=== PATIENT | female | born 1990 | race Caucasian/White ===

== ENCOUNTER 2017-03-13 10:32 | Emergency (ER) | payer SELFPAY ==
[2017-03-13 10:40] VITALS: BP 140/96
--- NOTE | 2017-03-13 11:03 | PHYS DOC ---
Past History Past Medical History: No Pertinent History Past Surgical History: Tonsillectomy Smoking: Less than 1pk/day Alcohol Use: Occasionally Adult General Chief Complaint Chief Complaint: CHEST PAIN [facility] HPI This 26-year-old lady presents with chest pain. She states she's had the chest pain for the past one or 2 weeks. She states the couple weeks ago she had an EKG she had done because of the chest pain then went to [facility] where she was evaluated thoroughly. No diagnosis was given. She states that in the past 24 she's had tightness in the center of her chest is been severe. She has had hemoptysis 5 out of 7 days only small amounts. Patient is a smoker, questionable history of hypertension, she does not know about her cholesterol but her father did have a heart attack. Review of Systems Review of Systems Constitutional: Denies fever or chills this patient is a very healthy looking 26 -year-old lady who does not appear to be in any distress Eyes: Denies change in visual acuity, redness, or eye pain [] HENT: Denies nasal congestion or sore throat [] Respiratory: Denies cough or shortness of breath [] Cardiovascular: No additional information not addressed in HPI [] GI: Denies abdominal pain, nausea, vomiting, bloody stools or diarrhea [] : Denies dysuria or hematuria [] Musculoskeletal: Denies back pain or joint pain [] Integument: Denies rash or skin lesions [] Neurologic: Denies headache, focal weakness or sensory changes [] Endocrine: Denies polyuria or polydipsia [] Allergies Allergies Allergies Coded Allergies Type Severity Reaction Last Updated Verified Penicillins Allergy rash, swelling, diarrhea 09/21/13 Yes shellfish derived Allergy diarrhea 09/21/13 Yes Physical Exam Physical Exam Constitutional: Well developed, well nourished, no acute distress, non-toxic appearance. [] HENT: Normocephalic, atraumatic, bilateral external ears normal, oropharynx moist, no oral exudates, nose normal. [] Eyes: PERRLA, EOMI, conjunctiva normal, no discharge. [] Neck: Normal range of motion, no tenderness, supple, no stridor. [] Cardiovascular:Heart rate regular rhythm, no murmur [] Lungs & Thorax: Bilateral breath sounds clear to auscultation she does have some central chest tenderness is somewhat recreates the pain Abdomen: Bowel sounds normal, soft, no tenderness, no masses, no pulsatile masses. [] Skin: Warm, dry, no erythema, no rash. [] Back: No tenderness, no CVA tenderness. [] Extremities: No tenderness, no cyanosis, no clubbing, ROM intact, no edema. [] Neurologic: Alert and oriented X 3, normal motor function, normal sensory function, no focal deficits noted. [] Psychologic: Affect normal, judgement normal, mood normal. [] EKG EKG EKG is essentially unremarkable with no significant ST or T-wave changes , chest x-ray is normal CBC and chemistries are all unremarkable troponin is normal and d-dimer is normal [] Radiology/Procedures Radiology/Procedures [] Impressions: Chest wall pain Course & Med Decision Making Course & Med Decision Making All of her lab work and x-rays EKG were all reviewed and all are essentially unremarkable She was instructed to follow-up with her doctor [] Dragon Disclaimer Dragon Disclaimer This chart was dictated in whole or in part using Voice Recognition software in a busy, high-work load, and often noisy Emergency Department environment. It may contain unintended and wholly unrecognized errors or omissions. Departure Departure: Referrals: PCP,NO (PCP) TATUM DAWSON MD Mar 13, 2017 11:03
[2017-03-13 11:16] LABS: BASO # 0.1 x10^3/uL (0.0-0.2); BASO % 1 % (0-3); EOS # 0.3 x10^3/uL (0.0-0.7); EOS % 5 % (0-3); HEMATOCRIT 40.7 % (36.0-47.0); HEMOGLOBIN 13.9 g/dL (12.0-15.5); LYMPH # 1.8 x10^3/uL (1.0-4.8); LYMPH % 27 % (24-48); MEAN CORPUSCULAR HEMOGLOBIN 31 pg (25-35); MEAN CORPUSCULAR HGB CONC 34 g/dL (31-37); MEAN CORPUSCULAR VOLUME 92 fL (79-100); MONO # 0.4 x10^3/uL (0.0-1.1); MONO % 6 % (0-9); NEUT % 61 % (31-73); PLATELET COUNT 221 x10^3/uL (140-400); RED BLOOD COUNT 4.44 x10^6/uL (3.50-5.40); RED CELL DISTRIBUTION WIDTH 13.3 % (11.5-14.5); WHITE BLOOD COUNT 6.6 x10^3/uL (4.0-11.0)
[2017-03-13 11:27] LABS: ALBUMIN/GLOBULIN RATIO 1.4 (1.0-1.7); CALCIUM 8.6 mg/dL (8.5-10.1); CREATININE 0.8 mg/dL (0.6-1.0); DIRECT BILIRUBIN 0.2 mg/dL (0.0-0.2); GFR 86.7; POTASSIUM 3.9 mmol/L (3.5-5.1); TOTAL BILIRUBIN 0.7 mg/dL (0.2-1.0); TOTAL PROTEIN 6.9 g/dL (6.4-8.2)
--- NOTE | 2017-03-13 11:32 | RAD ---
EXAM: CHEST 1 VIEW History: Chest pain COMPARISON: 05/30/2013 TECHNIQUE: Single portable radiograph of the chest FINDINGS: The cardiac silhouette is unremarkable. The lungs are clear bilaterally. The costophrenic sulci are clear and well demarcated. The osseous structures and soft tissues are unremarkable. IMPRESSION: No radiographic evidence of an acute cardiopulmonary process.
--- NOTE | 2017-03-13 14:06 | EKG ---
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 RI6.01 Unconfirmed report Compared to ECG 06/30/2013 02:29:41 No significant changes Electronically Signed On 03-15-2017 11:13:24 CDT by Lalo Issa
== END 2017-03-13 11:45 | disposition home or self-care (01) ==
LOC: ER 10:32
DX: R07.89 Other chest pain (principal); R04.2 Hemoptysis; F17.200 Nicotine dependence, unspecified, uncomplicated; Z88.0 Allergy status to penicillin; Z91.013 Allergy to seafood
CPT/HCPCS: 36415; 71010; 80053; 82248; 84484; 85027; 85379; 85610; 85730; 93005; 99285-25

== ENCOUNTER 2019-05-12 17:20 | Emergency (ER) | payer OTHER ==
[~2019-05-12] VITALS: Ht 165.1 cm; Wt 52.2 kg
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
[2019-05-12] MEDS ORDERED: IV RINGERS SOLUTION,LACTATED 1,000 ML IV SCH (17:43)
[2019-05-12] MEDS ORDERED: VALPROATE SODIUM 500 MG in IV NORMAL SALINE 50ML 50 ML IV STA (17:53)
[2019-05-12] MEDS ORDERED: diphenhydrAMINE 50 MG/ML VIAL IVP ONE (18:00)
[2019-05-12] MEDS ORDERED: PROCHLORPERAZINE 10 MG/2 ML VIAL. IV ONE (18:00)
[2019-05-12] MEDS ORDERED: IV NORMAL SALINE 50ML 50 ML ONE (18:03)
[2019-05-12] MEDS ORDERED: VALPROATE SODIUM 500 MG/5 ML VIAL IV ONE (18:04)
--- NOTE | 2019-05-12 18:05 | RAD ---
Exam: CT head INDICATION: Headache TECHNIQUE: Sequential axial images through the head were obtained without the administration of IV contrast. Comparisons: None FINDINGS: No focal parenchymal lesion or hemorrhage is identified. There is no midline shift or sulcal effacement. No acute vascular territory infarction is identified. Fernandez-white distinction is preserved. The ventricular system is within normal limits without compression hydrocephalus. The basal cisterns are well maintained. The visualized portions of the paranasal sinuses and mastoid air cells are well-pneumatized. No acute fractures. IMPRESSION: No acute intracranial abnormality. Exposure: One or more of the following in the visualized dose reduction techniques were utilized for this examination: 1. Automated exposure control 2. Adjustment of the MA and/or KV according to patient size Use of iterative of reconstructive technique Electronically signed by: Thao Alexander MD (05/12/2019 6:02 PM) [facility]
--- NOTE | 2019-05-12 18:10 | EKG ---
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 Electronically Signed On 05-17-2019 9:49:55 CDT by Lalo Issa
[2019-05-12 18:15] LABS: BASO # 0.1 x10^3/uL (0.0-0.2); BASO % 1 % (0-3); EOS # 0.4 x10^3/uL (0.0-0.7); EOS % 6 % (0-3); HEMATOCRIT 39.2 % (36.0-47.0); HEMOGLOBIN 13.2 g/dL (12.0-15.5); LYMPH % 30 % (24-48); MEAN CORPUSCULAR HEMOGLOBIN 32 pg (25-35); MEAN CORPUSCULAR HGB CONC 34 g/dL (31-37); MEAN CORPUSCULAR VOLUME 94 fL (79-100); MONO # 0.4 x10^3/uL (0.0-1.1); MONO % 6 % (0-9); NEUT # 3.9 x10^3uL (1.8-7.7); NEUT % 58 % (31-73); PLATELET COUNT 185 x10^3/uL (140-400); RED BLOOD COUNT 4.19 x10^6/uL (3.50-5.40); RED CELL DISTRIBUTION WIDTH 13.2 % (11.5-14.5); WHITE BLOOD COUNT 6.7 x10^3/uL (4.0-11.0)
[2019-05-12 18:23] LABS: ALBUMIN 3.8 g/dL (3.4-5.0); CALCIUM 8.8 mg/dL (8.5-10.1); CREATININE 0.8 mg/dL (0.6-1.0); DIRECT BILIRUBIN 0.2 mg/dL (0.0-0.2); GFR 85.4; MAGNESIUM 1.8 mg/dL (1.8-2.4); TOTAL BILIRUBIN 0.6 mg/dL (0.2-1.0); TOTAL PROTEIN 6.3 g/dL (6.4-8.2)
[2019-05-12 18:33] LABS: BARBITURATES NEG (NEG); BENZODIAZEPINES NEG (NEG); CANNABINOIDS POS (NEG); COCAINE NEG (NEG); METHADONE NEG (NEG); OPIATES NEG (NEG); PHENCYCLIDINE NEG (NEG)
[2019-05-12 18:35] LABS: BILIRUBIN,URINE NEG (NEG); CLARITY,URINE CLEAR; COLOR,URINE YELLOW; GLUCOSE,URINE NEG (NEG)
[2019-05-12 18:36] LABS: BACTERIA,URINE 0 /HPF (0-FEW); NITRITE,URINE NEG (NEG); RBC,URINE 0 /HPF (0-2); SQUAMOUS EPITHELIAL CELL,UR OCC /LPF; UROBILINOGEN,URINE 0.2 mg/dL (0.2 mg/dL); WBC,URINE OCC /HPF (0-4)
[2019-05-12 18:39] LABS: AMPHETAMINE/METHAMPHETAMINE NEG (NEG)
[2019-05-12] MEDS ORDERED: ONDA8TAB9 PO (18:51)
[2019-05-12] MEDS ORDERED: SUMA100T3 PO (18:51)
[2019-05-12] MEDS ORDERED: HYDR-1179 PO (18:51)
[2019-05-12] MEDS ORDERED: SUMAtriptan SUCC 6 MG/0.5 ML VIAL SQ ONE (19:00)
[2019-05-12] MEDS ORDERED: KETOROLAC 30 MG/ML VIAL. IV ONE (19:00)
[2019-05-12 19:06] VITALS: BP 123/65
[2019-05-12 19:45] LABS: SEDIMENTATION RATE 5 (0-25)
== END 2019-05-12 19:49 | disposition home or self-care (01) ==
LOC: ER 17:20
DX: G43.909 Migraine, unspecified, not intractable, without status migrainosus (principal); J45.909 Unspecified asthma, uncomplicated; Z87.820 Personal history of traumatic brain injury; F17.200 Nicotine dependence, unspecified, uncomplicated; Z88.0 Allergy status to penicillin; Z91.013 Allergy to seafood
CPT/HCPCS: 36415; 70450; 80048; 80076; 80307; 81001; 83735; 84702; 85025; 85610; 85651; 85730; 93005; 96365; 96372; 96375; 99285; J0780; J1200; J1885; J3030; J3490; J7120

== ENCOUNTER 2019-06-09 11:32 | Emergency (ER) | payer OTHER ==
[~2019-06-09 11:32] MED LIST: HYDR-1179 PO; ONDA8TAB9 PO; SUMA100T3 PO
[2019-06-09 11:45] VITALS: BP 118/77
[2019-06-09] MEDS ORDERED: MELO7.5T29 PO (11:59)
[2019-06-09] MEDS ORDERED: HYDR-3165 PO (11:59)
[2019-06-09] MEDS ORDERED: AMOX500T PO (11:59)
[2019-06-09] MEDS ORDERED: FLUC150T PO (11:59)
--- NOTE | 2019-06-09 12:00 | PHYS DOC ---
Past History Past Medical History: No Pertinent History Past Surgical History: Tonsillectomy Smoking: Less than 1pk/day Alcohol Use: None Drug Use: None Adult General Chief Complaint Chief Complaint: DENTAL PROBLEM HPI HPI Patient is a 28-year-old female presents with right upper dental pain that has been present for the past day, getting worse over time. Sensitivity to hot and cold is present. No fever. No drainage. No foul taste in the mouth. No fever. No relief with xhyg-djn-ghukakj medication. No nausea or vomiting. No difficulty swallowing. Discomfort is moderate to severe in intensity.[] Review of Systems Review of Systems Constitutional: Denies fever or chills [] Eyes: Denies change in visual acuity, redness, or eye pain [] HENT: Denies nasal congestion or sore throat , see history of present illness[] Respiratory: Denies cough or shortness of breath [] Cardiovascular: No chest pain or palpitations[] GI: Denies abdominal pain, nausea, vomiting, bloody stools or diarrhea [] : Denies dysuria or hematuria [] Musculoskeletal: Denies back pain or joint pain [] Integument: Denies rash or skin lesions [] Neurologic: Denies headache, focal weakness or sensory changes [] Endocrine: Denies polyuria or polydipsia [] All other systems were reviewed and found to be within normal limits, except as documented in this note. Allergies Allergies Allergies Coded Allergies Type Severity Reaction Last Updated Verified Penicillins Allergy rash, swelling, diarrhea 09/21/13 Yes shellfish derived Allergy diarrhea 09/21/13 Yes Physical Exam Physical Exam Constitutional: Well developed, well nourished, no acute distress, non-toxic appearance. [] HENT: Normocephalic, atraumatic, bilateral external ears normal, oropharynx moist, no oral exudates, nose normal. Tenderness to percussion of tooth #2. Patient has braces still in place on teeth #2 and 3. There is no drainable abscess appreciated. [] Eyes: PERRLA, EOMI, conjunctiva normal, no discharge. [] Neck: Normal range of motion, no tenderness, supple, no stridor. [] Cardiovascular:Heart rate regular rhythm, no murmur [] Lungs & Thorax: Bilateral breath sounds clear to auscultation [] Abdomen: Not examined[] Skin: Warm, dry, no erythema, no rash. [] Back: No tenderness, no CVA tenderness. [] Extremities: No tenderness, no cyanosis, no clubbing, ROM intact, no edema. [] Neurologic: Alert and oriented X 3, normal motor function, normal sensory function, no focal deficits noted. [] Psychologic: Affect normal, judgement normal, mood normal. [] Current Patient Data Vital Signs Vital Signs Date Time Temp Pulse Resp B/P (MAP) Pulse Ox O2 Delivery O2 Flow Rate FiO2 06/09/19 11:45 98.7 86 18 98 Room Air EKG EKG [] Radiology/Procedures Radiology/Procedures [] Course & Med Decision Making Course & Med Decision Making Pertinent Labs and Imaging studies reviewed. (See chart for details) Medical decision making: Patient with a periapical abscess of tooth #2. Will treat with amoxicillin. Patient does not actually have an amoxicillin allergy but gets yeast infections with penicillin antibiotics. Will also prescribed Diflucan to treat this if it develops at the end of the antibiotics. Will also address pain with appropriate medication. ED course: Patient arrived, was placed in bed, and tolerated exam well. Findings were discussed with the patient who voiced understanding. All questions were answered. Patient was discharged in improved condition.[] Dragon Disclaimer Dragon Disclaimer This electronic medical record was generated, in whole or in part, using a voice recognition dictation system. Departure Departure: Impression: Primary Impression: Dental abscess Disposition: 01 HOME, SELF-CARE Condition: IMPROVED Referrals: TATUM SIERRA MD (PCP) Follow-up in 2 days Patient Instructions: Dental Abscess Additional Instructions: Follow-up with your regular doctor or dentist in 2 days. A list of local clinics will be provided for you. Return to the ER if worsening discomfort, fever of more than 101�, or any other concerns. Scripts Fluconazole (DIFLUCAN) 150 Mg Tablet 1 TAB PO ONCE for AT END OF ANTIBIOTICS, #1 TAB 1 Refill Prov: YENI GUPTA DO 06/09/19 Hydrocodone Bit/Acetaminophen (NORCO 5-325 TABLET) 1 Each Tablet 1 TAB PO Q4-6HRS for severe pain, #20 TAB Prov: YENI GUPTA DO 06/09/19 Meloxicam (MELOXICAM) 7.5 Mg Tablet 7.5 MG PO DAILY for PAIN, #20 TAB Prov: EIYENI LO DO 06/09/19 Amoxicillin (AMOXICILLIN) 500 Mg Tablet 500 MG PO TID for DENTAL ABSCESS for 10 Days, #30 TAB Prov: YENI GUPTA DO 06/09/19 YENI GUPTA DO Jun 09, 2019 12:00
== END 2019-06-09 12:11 | disposition home or self-care (01) ==
LOC: ER 11:32
DX: K04.7 Periapical abscess without sinus (principal); F17.200 Nicotine dependence, unspecified, uncomplicated; Z88.0 Allergy status to penicillin; Z91.013 Allergy to seafood
CPT/HCPCS: 99283

== ENCOUNTER 2020-06-04 14:38 | Emergency (ER) | payer BC, OTHER ==
[~2020-06-04] VITALS: Ht 165.1 cm; Wt 54.0 kg
[~2020-06-04 14:38] MED LIST changes: +AMOX500T PO; +FLUC150T PO; +HYDR-3165 PO; +MELO7.5T29 PO
[2020-06-04 14:53] VITALS: BP 122/69
--- NOTE | 2020-06-04 15:40 | RAD ---
Examination: US PELVIS History: left side pelvic pain since yesterday. Comparison/Correlation: None Findings: Transabdominal pelvic ultrasound exam was performed. Uterus measures 7.6 x 4.4 cm x 5 cm. Endometrial thickness is 0.7 cm. Myometrium is unremarkable. Right ovary measures 3 cm x 1.8 cm x 2.1 cm. Left ovary measures 2.1 cm x 2.4 cm x 1.8 cm. No significant adnexal cysts or follicles. Normal-appearing flow bilaterally. No adnexal mass. No pelvic free fluid. Impression: No suspicious findings. Unremarkable exam. Electronically signed by: Elmer Jerry MD (06/04/2020 3:37 PM) [facility]
[2020-06-04 16:30] LABS: BILIRUBIN,URINE NEG (NEG); CLARITY,URINE CLEAR; COLOR,URINE STRAW; GLUCOSE,URINE NEG (NEG); NITRITE,URINE NEG (NEG); UROBILINOGEN,URINE 0.2 mg/dL (0.2 mg/dL)
--- NOTE | 2020-06-04 16:32 | RAD ---
Examination: CT ABDOMEN PELVIS WO CONTRAST History: left side flank pain, left side lower abdominal pain / Comparison/Correlation: None Findings: Axial images of the abdomen and pelvis were obtained without contrast. Sagittal and coronal reformatted images were provided. Minimal lingular atelectasis is present. Liver, spleen, pancreas, adrenal glands are normal. Gallbladder fossa is unremarkable. There is no hydronephrosis or hydroureter. Renal contours are normal. No perinephric stranding identified. Appendix is normal. Moderate quantity of stool is present in the colon. No extraluminal gas. No bowel obstruction. Uterus is unremarkable. Left adnexal follicle measuring 1.5 cm diameter is present. Small amount of pelvic free fluid is present. Bony structures are unremarkable. No definite or significant degenerative change. Impression: Small left adnexal follicle and pelvic fluid are physiologic in appearance. No acute inflammatory process. No obstruction. PQRS Compliance Statement: One or more of the following individualized dose reduction techniques were utilized for this examination: 1. Automated exposure control 2. Adjustment of the mA and/or kV according to patient size 3. Use of iterative reconstruction technique Electronically signed by: Elmer Jerry MD (06/04/2020 4:29 PM) [facility]
[2020-06-04 16:38] LABS: BACTERIA,URINE 0 /HPF (0-FEW); WBC,URINE 0 /HPF (0-4)
--- NOTE | 2020-06-04 17:04 | PHYS DOC ---
Past History Past Medical History: No Pertinent History Past Surgical History: Tonsillectomy Smoking: Less than 1pk/day Alcohol Use: None Drug Use: None General Adult EDM: Chief Complaint: ABDOMINAL PAIN HPI: HPI: Patient is a 29-year-old female who presented to ER today for evaluation of left lower abdominal pain started yesterday. Symptoms started again today. Patient denies any fever, no nausea vomiting. Patient denies any vaginal bleeding or discharge. Review of Systems: Review of Systems: Constitutional: Denies fever or chills Eyes: Denies change in visual acuity HENT: Denies nasal congestion or sore throat Respiratory: Denies cough or shortness of breath Cardiovascular: Denies chest pain or edema GI: Positive for Left side abdominal pain,no nausea, vomiting, bloody stools or diarrhea : Denies dysuria Musculoskeletal: Denies back pain or joint pain Integument: Denies rash Neurologic: Denies headache, focal weakness or sensory changes Endocrine: Denies polyuria or polydipsia Lymphatic: Denies swollen glands Psychiatric: Denies depression or anxiety Heart Score: Risk Factors: Risk Factors: DM, Current or recent (<one month) smoker, HTN, HLP, family history of CAD, obesity. Risk Scores: Score 0 - 3: 2.5% MACE over next 6 weeks - Discharge Home Score 4 - 6: 20.3% MACE over next 6 weeks - Admit for Clinical Observation Score 7 - 10: 72.7% MACE over next 6 weeks - Early Invasive Strategies Allergies: Allergies: Allergies Coded Allergies Type Severity Reaction Last Updated Verified Penicillins Allergy rash, swelling, diarrhea 09/21/13 Yes shellfish derived Allergy diarrhea 09/21/13 Yes Physical Exam: PE: Constitutional: Well developed, well nourished, no acute distress, non-toxic appearance. [] HENT: Normocephalic, atraumatic, bilateral external ears normal, oropharynx mo ist, no oral exudates, nose normal. [] Eyes: PERRLA, EOMI, conjunctiva normal, no discharge. [] Neck: Normal range of motion, no tenderness, supple, no stridor. [] Cardiovascular:Heart rate regular rhythm, no murmur [] Lungs & Thorax: Bilateral breath sounds clear to auscultation [] Abdomen: Bowel sounds normal, soft, There is left side lower abdominal tenderness to palpation, no masses, no pulsatile masses. [] Skin: Warm, dry, no erythema, no rash. [] Back: No tenderness, no CVA tenderness. [] Extremities: No tenderness, no cyanosis, no clubbing, ROM intact, no edema. [] Neurologic: Alert and oriented X 3, normal motor function, normal sensory function, no focal deficits noted. [] Psychologic: Affect normal, judgement normal, mood normal. [] Current Patient Data: Labs: Laboratory Tests Test 06/04/20 15:01 06/04/20 15:59 Urine Collection Type Unknown Urine Color Straw Urine Clarity Clear Urine pH 7.0 Urine Specific Levels 1.015 Urine Protein Neg (NEG-TRACE) Urine Glucose (UA) Neg mg/dL (NEG) Urine Ketones (Stick) Neg mg/dL (NEG) Urine Blood Neg (NEG) Urine Nitrite Neg (NEG) Urine Bilirubin Neg (NEG) Urine Urobilinogen Dipstick 0.2 mg/dL (0.2 mg/dL) Urine Leukocyte Esterase Neg (NEG) Urine RBC 1-2 /HPF (0-2) Urine WBC 0 /HPF (0-4) Urine Bacteria 0 /HPF (0-FEW) POC Urine HCG, Qualitative hcg negative (Negative) Vital Signs: Vital Signs Date Time Temp Pulse Resp B/P (MAP) Pulse Ox O2 Delivery O2 Flow Rate FiO2 06/04/20 14:53 97.8 91 16 122/69 (86) 99 Room Air EKG: EKG: [] Radiology/Procedures: Radiology/Procedures: [][address] [address] IMAGING REPORT Signed PATIENT: VENTURA GEORGE ACCOUNT: [id number] : 1990 LOCATION: ER AGE: 29 SEX: F EXAM STATUS: DEP ER ORD. PHYSICIAN: MOHESN MASTERSON DO REASON: left side flank pain, left side lower abdominal pain PROCEDURE: CT ABDOMEN PELVIS WO CONTRAST Examination: CT ABDOMEN PELVIS WO CONTRAST History: left side flank pain, left side lower abdominal pain / Comparison/Correlation: None Findings: Axial images of the abdomen and pelvis were obtained without contrast. Sagittal and coronal reformatted images were provided. Minimal lingular atelectasis is present. Liver, spleen, pancreas, adrenal glands are normal. Gallbladder fossa is unremarkable. There is no hydronephrosis or hydroureter. Renal contours are normal. No perinephric stranding identified. Appendix is normal. Moderate quantity of stool is present in the colon. No extraluminal gas. No bowel obstruction. Uterus is unremarkable. Left adnexal follicle measuring 1.5 cm diameter is present. Small amount of pelvic free fluid is present. Bony structures are unremarkable. No definite or significant degenerative change. Impression: Small left adnexal follicle and pelvic fluid are physiologic in appearance. No acute inflammatory process. No obstruction. PQRS Compliance Statement: One or more of the following individualized dose reduction techniques were utilized for this examination: 1. Automated exposure control 2. Adjustment of the mA and/or kV according to patient size 3. Use of iterative reconstruction technique Electronically signed by: Elmer Herrera MD (06/04/2020 4:29 PM) [facility] DICTATED AND SIGNED BY: ELMER HERRERA MD DATE: 06/04/20 6819 CC: PCP,NO; MOHSEN MASTERSON DO ~ [place] [address] IMAGING REPORT Signed PATIENT: VENTURA GEORGE ACCOUNT: [id number] : 1990 LOCATION: ER AGE: 29 SEX: F EXAM STATUS: DEP ER ORD. PHYSICIAN: MOHSEN MASTERSON DO REASON: left side flank pain, left side lower abdominal pain PROCEDURE: CT ABDOMEN PELVIS WO CONTRAST Examination: CT ABDOMEN PELVIS WO CONTRAST History: left side flank pain, left side lower abdominal pain / Comparison/Correlation: None Findings: Axial images of the abdomen and pelvis were obtained without contrast. Sagittal and coronal reformatted images were provided. Minimal lingular atelectasis is present. Liver, spleen, pancreas, adrenal glands are normal. Gallbladder fossa is unremarkable. There is no hydronephrosis or hydroureter. Renal contours are normal. No perinephric stranding identified. Appendix is normal. Moderate quantity of stool is present in the colon. No extraluminal gas. No bowel obstruction. Uterus is unremarkable. Left adnexal follicle measuring 1.5 cm diameter is present. Small amount of pelvic free fluid is present. Bony structures are unremarkable. No definite or significant degenerative change. Impression: Small left adnexal follicle and pelvic fluid are physiologic in appearance. No acute inflammatory process. No obstruction. [facility] Compliance Statement: One or more of the following individualized dose reduction techniques were utilized for this examination: 1. Automated exposure control 2. Adjustment of the mA and/or kV according to patient size 3. Use of iterative reconstruction technique Electronically signed by: Elmer Herrera MD (06/04/2020 4:29 PM) [facility] DICTATED AND SIGNED BY: ELMER HERRERA MD DATE: 06/04/20 1629 CC: [facility]; MOHSEN MASTERSON DO ~ Course & Med Decision Making: Course & Med Decision Making Pertinent Labs and Imaging studies reviewed. (See chart for details) [] Dragon Disclaimer: Dragon Disclaimer: This electronic medical record was generated, in whole or in part, using a voice recognition dictation system. Departure Departure: Impression: Primary Impression: Abdominal pain Disposition: HOME/RESIDENCE PRIOR TO ADM Condition: STABLE Referrals: [facility] (PCP) follow up with your doctor as needed Patient Instructions: Abdominal Pain Additional Instructions: Thank you for visiting our Emergency Department. We appreciate you trusting us with your care. If any additional problems come up don't hesitate to return to visit us. Please follow up with your primary care provider so they can plan additional care if needed and know about the problem that you had. If symptoms worsen come back to the Emergency Department. Any concerning symptoms that start such as chest pain, shortness of air, weakness or numbness on one side of the body, running high fevers or any other concerning symptoms return to the ER. Justification of Admission: Justification of Admission: Justification of Admission Dx: N/A MOHSEN MASTERSON DO Jun 04, 2020 17:04
== END 2020-06-04 16:10 | disposition home or self-care (01) ==
LOC: ER 14:38
DX: R10.32 Left lower quadrant pain (principal); F17.200 Nicotine dependence, unspecified, uncomplicated; Z88.0 Allergy status to penicillin; Z91.013 Allergy to seafood
CPT/HCPCS: 74176; 76856; 81001; 81025; 99285

== ENCOUNTER 2020-07-28 00:05 | Emergency (ER) | payer OTHER ==
[~2020-07-28] VITALS: Ht 165.1 cm; Wt 54.0 kg
[2020-07-28 00:05] VITALS: BP 104/45
--- NOTE | 2020-07-28 00:15 | PHYS DOC ---
Past History Past Medical History: No Pertinent History, Anxiety, Asthma, Bronchitis, Other Past Medical History Seasonal allergies Past Surgical History: Tonsillectomy Smoking: Less than 1pk/day Alcohol Use: None Drug Use: None, Marijuana General Adult HPI: HPI: ''.. I ve been on my inhaler... and on breathing treatment s all night.. it the seasons.. but I am coughing.. wheezing bad... I figured I better come in... I was so bad .. I could not go to work..." Patient is a 29 year old female who presents with above hx and complaints of exacerbation of her asthma. Patient states she has exacerbation with season changes of the year. Patient however does continue to smoke tobacco. Patient does not know her best peak flow. Patient has been using [id number]-thr-[id number] allergy meds. Patient has been overusing her inhalers and breathing treatments. Patient works at [employer] but because of the wheezing and coughing she had to take off work. Patient has never been intubated for asthma. Patient has not required admission overnight in the hospital for asthma exacerbation. Alexa ent does not do flu shots. Patient states she will not do the Covid vaccination if becomes available. Patient states she she does not or will do Pneumovax.. No specific ill contacts. No recent travel outside the [place] area. No history of fevers however has had some productive sputum.. No history of immuno suppression. No history of coagulopathy, pulmonary embolisms, DVTs. With her or family members. Review of Systems: Review of Systems: Constitutional: Denies fever or chills Eyes: Denies change in visual acuity HENT: Denies nasal congestion or sore throat Respiratory: Complains of cough, wheezing, Cardiovascular: Denies chest pain or edema GI: Denies abdominal pain, nausea, vomiting, bloody stools or diarrhea : Denies dysuria Musculoskeletal: Denies back pain or joint pain Integument: Denies rash Neurologic: Denies headache, focal weakness or sensory changes Endocrine: Denies polyuria or polydipsia Lymphatic: Denies swollen glands Psychiatric: Denies depression or anxiety Family History: Family History: Noncontributory to presentation Current Medications: Current Meds: See nursing for home meds Allergies: Allergies: Allergies Coded Allergies Type Severity Reaction Last Updated Verified Penicillins Allergy rash, swelling, diarrhea 09/21/13 Yes shellfish derived Allergy diarrhea 09/21/13 Yes Physical Exam: PE: Constitutional: Moderate distress, non-toxic appearance. [] HENT: Normocephalic, atraumatic, bilateral external ears normal, oropharynx moist, postnasal drainage, no oral exudates, nose swollen turbinates with clear rhinorrhea Eyes: PERRLA, EOMI, conjunctiva mild injection, , no discharge. [] Neck: Normal range of motion, no tenderness, supple, no stridor. No adenopathy. Trachea is midline. Cardiovascular: Tachycardia heart rate regular rhythm, no murmur [] Lungs & Thorax: Bilateral breath sounds equal at apex with scattered wheezing throughout on auscultation [] deep breaths causes her to cough. Patient has decreased breath sounds on right posterior base. Abdomen: Bowel sounds normal, soft, no tenderness, no masses, no pulsatile masses. [] Skin: Warm, dry, no erythema, no rash.. Multiple tattoos. Back: No tenderness, no CVA tenderness. [] Extremities: No tenderness, no cyanosis, no clubbing, ROM intact, no edema. No cording appreciated. Neurologic: Alert and oriented X 3, normal motor function, normal sensory function, no focal deficits noted. [] Psychologic: Affect anxious, judgement normal, mood normal. [] EKG: EKG: [] Radiology/Procedures: Radiology/Procedures: [][place] [address] IMAGING REPORT Signed PATIENT: VENTURA GEORGE ACCOUNT: [id number] : 1990 LOCATION: ER AGE: 29 SEX: F EXAM STATUS: REG ER ORD. PHYSICIAN: RUDI BACON MD REASON: cough, decrese bs Rt PROCEDURE: CHEST PA & LATERAL EXAM: CHEST 2 VIEWS. HISTORY: Cough, decreased right breath sounds. COMPARISON: 03/13/2017. FINDINGS: Frontal and lateral views of the chest are obtained. There are no confluent infiltrates. There is no pneumothorax or pleural effusion. The heart is not enlarged. IMPRESSION: 1. No confluent infiltrates. Electronically signed by: Rob Payton MD (07/28/2020 1:06 AM) [facility] DICTATED AND SIGNED BY: MAGEN PAYTON MD DATE: 07/28/20105 CC: RUDI BACON MD; PCP,CICI ~ Heart Score: Risk Factors: Risk Factors: DM, Current or recent (<one month) smoker, HTN, HLP, family history of CAD, obesity. Risk Scores: Score 0 - 3: 2.5% MACE over next 6 weeks - Discharge Home Score 4 - 6: 20.3% MACE over next 6 weeks - Admit for Clinical Observation Score 7 - 10: 72.7% MACE over next 6 weeks - Early Invasive Strategies Course & Med Decision Making: Course & Med Decision Making Pertinent Labs and Imaging studies reviewed. (See chart for details) Patient consider use of Flonase for seasonal allergies. Continue her breathing treatments with duo nebs and or albuterol every 4 hours as needed with spacer. Patient is a document peak flows in the morning pre and post treatments. Show these findings to primary care. Patient must stop smoking. Strongly encourage patient to take it flu shot and Pneumovax.. Patient take prednisone 50 mg daily for 5 days. Patient take Zithromax 250 mg a day for 5 days. Follow-up primary care. Return if any concerns. At time of discharge patient reported marked improvement. Patient was no longer tachycardic or borderline hypoxic. Impression: 1. Asthma Exacerbation 2. Bronchitis 3. Seasonal Allergies 4. Upper airway infections- Viral vs Bacterial [] Rowdy Disclaimer: Rowdy Disclaimer: This electronic medical record was generated, in whole or in part, using a voice recognition dictation system. Departure Departure: Referrals: PCP,CICI (PCP) Scripts Ipratropium/Albuterol Sulfate (DUONEB 0.5-3(2.5) MG/3 ML) 3 Ml Ampul.neb 3 ML NEB QID for asthma, #120 EACH Prov: RUDI BACON MD 07/28/20 Albuterol Sulfate (VENTOLIN HFA INHALER) 18 Gm Hfa.aer.ad 1 PUFF IH PRN Q4HRS PRN for FOR ASTHMA, #30 INHALER 0 Refills Prov: RUDI BACON MD 07/28/20 Azithromycin (ZITHROMAX) 250 Mg Tablet 250 MG PO DAILY for ANTI-BIOTIC for 5 Days, #5 TAB 0 Refills Prov: RUDI BACON MD 07/28/20 Prednisone (PREDNISONE) 50 Mg Tablet 50 MG PO DAILY for asthmna for 5 Days, #5 TAB Prov: RUDI BACON MD 07/28/20 Dragon Disclaimer This chart was dictated in whole or in part using Voice Recognition software in a busy, high-work load, and often noisy Emergency Department environment. It may contain unintended and wholly unrecognized errors or omissions. RUDI BACON MD Jul 28, 2020 00:15
[2020-07-28] MEDS ORDERED: IPRATRPIUM/ALBUTEROL 0.5/2.5MG 3 ML NEBU. NEB ONE (00:30)
[2020-07-28] MEDS ORDERED: AZITHROMYCIN 250 MG TABLET. PO ONE (00:30)
[2020-07-28] MEDS ORDERED: predniSONE 10 MG TABLET PO ONE (00:30)
--- NOTE | 2020-07-28 01:09 | RAD ---
EXAM: CHEST 2 VIEWS. HISTORY: Cough, decreased right breath sounds. COMPARISON: 03/13/2017. FINDINGS: Frontal and lateral views of the chest are obtained. There are no confluent infiltrates. There is no pneumothorax or pleural effusion. The heart is not enlarged. IMPRESSION: 1. No confluent infiltrates. Electronically signed by: Rob Payton MD (07/28/2020 1:06 AM) [facility]
[2020-07-28] MEDS ORDERED: AZIT250T PO (01:26)
[2020-07-28] MEDS ORDERED: ALBU2.5V8 IH (01:26)
[2020-07-28] MEDS ORDERED: IPRA3AMP29 NEB (01:26)
[2020-07-28] MEDS ORDERED: PRED50TA PO (01:26)
[2020-07-29] MEDS ORDERED: BUDE10.2 IH (02:31)
== END 2020-07-28 01:58 | disposition home or self-care (01) ==
LOC: ER 00:05
DX: J45.901 Unspecified asthma with (acute) exacerbation (principal); F41.9 Anxiety disorder, unspecified; F17.200 Nicotine dependence, unspecified, uncomplicated; Z88.0 Allergy status to penicillin; Z91.013 Allergy to seafood
CPT/HCPCS: 71046; 94640; 99283; J0456; J7512

== ENCOUNTER 2020-07-28 19:03 | Observation (INO) | payer OTHER ==
[~2020-07-28] VITALS: Ht 160 cm; Wt 55.1 kg
[~2020-07-28 19:03] MED LIST changes: +ALBU2.5V8 IH; +AZIT250T PO; +IPRA3AMP29 NEB; +PRED50TA PO
--- NOTE | 2020-07-28 19:14 | PHYS DOC ---
Past History Past Medical History: No Pertinent History, Anxiety, Asthma, Bronchitis, Other Past Surgical History: Tonsillectomy Smoking: Less than 1pk/day Alcohol Use: None Drug Use: Marijuana General Adult EDM: Chief Complaint: SHORTNESS OF BREATH HPI: HPI: "..I ve been doing all the ...treatment... I ve even... stop smoking... ..It just .. I am not better...' Patient is a 29 year old female who presents with above hx and complaints of dyspnea and asthma exacerbation. Patient was seen this morning evaluated and treated for asthma exacerbation. As per this morning she has periodic asthma exacerbations with season changes a years particular fall. Patient however does continue to smoke tobacco and marijuana. Patient does not know her best peak flow. Has been taking lbog-otp-lpvthni allergy meds. Last night she was overusing her inhalers and breathing treatments with little improvement. 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 Patient never been intubated for asthma. Has never required admission overnight in the hospital for asthma exacerbations. Patient is does not do flu shots or Pneumovax. Patient has had no recent travel outside [facility] area. No recent fevers. Has had some productive clear sputum. No history immunosuppression. No history of coagulopathy, pulmonary embolisms , DVTs. Pt has not had any pul monary functions tests and never followed up with Pulmonary. Patient returns tonight with increased dyspnea, wheezing and now shortness of breath. Patient advises she did fill her antibiotics, has been taking her prednisone and using the DuoNeb's previously directed. Patient states she has been so short of breath today she has not smoked all day long.. Patient initial check and vitals did show a tachycardia and patient does seem more dyspneic with some intercostal contractions as compared to her exam last night. Review of Systems: Review of Systems: Constitutional: Denies fever or chills Eyes: Denies change in visual acuity HENT: Complains of nasal congestion and sore throat Respiratory: Complains cough, wheezing and shortness of breath Cardiovascular: Denies chest pain or edema GI: Denies abdominal pain, nausea, vomiting, bloody stools or diarrhea : Denies dysuria Musculoskeletal: Denies back pain or joint pain Integument: Denies rash Neurologic: Denies headache, focal weakness or sensory changes Endocrine: Denies polyuria or polydipsia Lymphatic: Denies swollen glands Psychiatric: Denies depression or anxiety Family History: Family History: Noncontributory to presentation Current Medications: Current Meds: See nursing for home meds Allergies: Allergies: Allergies Coded Allergies Type Severity Reaction Last Updated Verified Penicillins Allergy Unknown rash, swelling, diarrhea 07/28/20 Yes shellfish derived Allergy Unknown diarrhea 07/28/20 Yes Physical Exam: PE: Constitutional: Moderate acute distress, non-toxic appearance. [] HENT: Normocephalic, atraumatic, bilateral external ears normal, oropharynx moist, no oral exudates, nose swollen turbinates and clear rhinorrhea Eyes: PERRLA, EOMI, conjunctiva normal, no discharge. [] Neck: Normal range of motion, no tenderness, supple, no stridor. [] Cardiovascular: Tachycardia heart rate regular rhythm, no murmur [] Lungs & Thorax: Bilateral breath sounds with scattered wheezes throughout on auscultation [] Abdomen: Bowel sounds normal, soft, no tenderness, no masses, no pulsatile masses. [] Skin: Warm, dry, no erythema, no rash. Multiple tattoos. Back: No tenderness, no CVA tenderness. [] Extremities: No tenderness, no cyanosis, no clubbing, ROM intact, no edema. [] Neurologic: Alert and oriented X 3, normal motor function, normal sensory function, no focal deficits noted. No cording. Psychologic: Affect anxious, judgement normal, mood normal. [] EKG: EKG: My interpretation EKG shows a sinus tachycardia 104 bpm. Conor some bimodal atrial P waves right bundle branch block. [] Radiology/Procedures: Radiology/Procedures: [][address] [address] IMAGING REPORT Signed PATIENT: VENTURA GEORGE ACCOUNT: [id number] : 1990 LOCATION: ER AGE: 29 SEX: F EXAM STATUS: REG ER ORD. PHYSICIAN: RUDI BACON MD REASON: Increase dyspena since seen in ER this a.m., hypoxia PROCEDURE: CT CHEST WO CONTRAST EXAM: CT Chest without IV contrast INDICATION: Reason: Increase dyspena since seen in ER this a.m., hypoxia / Spl. Instructions: Allergy to Iodine contrast per patient / History: TECHNIQUE: Multi-detector row CT images were acquired from the thoracic inlet through the upper abdomen without the use of IV contrast. Sagittal and coronal images were acquired from the transaxial data. All CT scans performed at this facility utilize dose optimization techniques as appropriate to the exam, including the following: Automated exposure control and adjustment of the mA and/or KV according to patient size (this includes techniques or standardized protocols for targeted exams where dose is indication/reason for exam). COMPARISON: None FINDINGS: The absence of IV contrast limits evaluation of soft tissue pathology. CARDIOVASCULAR: Unremarkable MEDIASTINUM & HAWA: No adenopathy or masses. LUNGS: Minimal atelectatic changes in the lingula and right middle lobe. No pulmonary infiltrate, nodule, or other focal abnormality. PLEURAL SPACE: No pleural effusions or pneumothorax. OSSEOUS & SOFT TISSUE: Unremarkable ABDOMEN: The visualized portions of the upper abdomen are unremarkable. IMPRESSION: Unremarkable CT of the chest without IV contrast. Electronically signed by: Anna Bullard MD (07/28/2020 8:02 PM) [facility] DICTATED AND SIGNED BY: ANNA BULLARD MD DATE: 07/28/202001 CC: RUDI BACON MD; PCP,NO ~ Heart Score: HEART Score for Chest Pain: HEART Score for Chest Pain Response (Comments) Value History Slighlty/Non-Suspicious 0 ECG Normal 0 Age < 45 0 Risk Factors No Risk Factors 0 Troponin < Normal Limit 0 Total 0 Risk Factors: Risk Factors: DM, Current or recent (<one month) smoker, HTN, HLP, family history of CAD, obesity. Risk Scores: Score 0 - 3: 2.5% MACE over next 6 weeks - Discharge Home Score 4 - 6: 20.3% MACE over next 6 weeks - Admit for Clinical Observation Score 7 - 10: 72.7% MACE over next 6 weeks - Early Invasive Strategies Course & Med Decision Making: Course & Med Decision Making Pertinent Labs and Imaging studies reviewed. (See chart for details) Treatments patient still only reached 50% of her predicted predicted peak flow. Best rating was 240 Discussed presentation testing and treatment plan with , will admit for in patient treatment Impression: 1. Asthma exacerbation 2. Bronchitis 3. History of seasonal allergies 4. Suspected viral infection 5. Outpatient treatment failure [] Dragon Disclaimer: Dragon Disclaimer: This electronic medical record was generated, in whole or in part, using a voice recognition dictation system. Departure Departure: Referrals: PCP,NO (PCP) Rowdy Disclaimer This chart was dictated in whole or in part using Voice Recognition software in a busy, high-work load, and often noisy Emergency Department environment. It may contain unintended and wholly unrecognized errors or omissions. RUDI BACON MD Jul 28, 2020 19:14
[2020-07-28] MEDS ORDERED: IV RINGERS SOLUTION,LACTATED 1,000 ML IV SCH (19:28)
[2020-07-28] MEDS ORDERED: IPRATRPIUM/ALBUTEROL 0.5/2.5MG 3 ML NEBU. NEB ONE (19:30)
[2020-07-28] MEDS ORDERED: methylPREDNISolone SOD SUCC PF 125 MG/2 ML VIAL. IV ONE (19:30)
--- NOTE | 2020-07-28 20:05 | RAD ---
EXAM: CT Chest without IV contrast INDICATION: Reason: Increase dyspena since seen in ER this a.m., hypoxia / Spl. Instructions: Allergy to Iodine contrast per patient / History: TECHNIQUE: Multi-detector row CT images were acquired from the thoracic inlet through the upper abdomen without the use of IV contrast. Sagittal and coronal images were acquired from the transaxial data. All CT scans performed at this facility utilize dose optimization techniques as appropriate to the exam, including the following: Automated exposure control and adjustment of the mA and/or KV according to patient size (this includes techniques or standardized protocols for targeted exams where dose is indication/reason for exam). COMPARISON: None FINDINGS: The absence of IV contrast limits evaluation of soft tissue pathology. CARDIOVASCULAR: Unremarkable MEDIASTINUM & HAWA: No adenopathy or masses. LUNGS: Minimal atelectatic changes in the lingula and right middle lobe. No pulmonary infiltrate, nodule, or other focal abnormality. PLEURAL SPACE: No pleural effusions or pneumothorax. OSSEOUS & SOFT TISSUE: Unremarkable ABDOMEN: The visualized portions of the upper abdomen are unremarkable. IMPRESSION: Unremarkable CT of the chest without IV contrast. Electronically signed by: Peyton Goodman MD (07/28/2020 8:02 PM) [facility]
[2020-07-28 20:44] LABS: BASO # 0.1 x10^3/uL (0.0-0.2); BASO % 1 % (0-3); EOS # 0.1 x10^3/uL (0.0-0.7); EOS % 1 % (0-3); HEMOGLOBIN 13.6 g/dL (12.0-15.5); LYMPH % 7 % (24-48); MEAN CORPUSCULAR HEMOGLOBIN 31 pg (25-35); MEAN CORPUSCULAR HGB CONC 33 g/dL (31-37); MEAN CORPUSCULAR VOLUME 94 fL (79-100); MONO # 0.6 x10^3/uL (0.0-1.1); MONO % 4 % (0-9); NEUT # 12.1 x10^3uL (1.8-7.7); NEUT % 87 % (31-73); PLATELET COUNT 228 x10^3/uL (140-400); RED BLOOD COUNT 4.36 x10^6/uL (3.50-5.40); RED CELL DISTRIBUTION WIDTH 13.1 % (11.5-14.5); WHITE BLOOD COUNT 13.9 x10^3/uL (4.0-11.0)
[2020-07-28 20:52] LABS: BARBITURATES NEG (NEG); BENZODIAZEPINES NEG (NEG); CANNABINOIDS POS (NEG); COCAINE NEG (NEG); METHADONE NEG (NEG); OPIATES NEG (NEG); PHENCYCLIDINE NEG (NEG)
[2020-07-28 21:01] LABS: AMPHETAMINE/METHAMPHETAMINE NEG (NEG)
--- NOTE | 2020-07-28 21:03 | EKG ---
[address] [address] Test Date: 2020-07-28 Test Time: 20:43:09 Pat Name: VENTURA GEORGE Department: Room: Gender: F Life Consultant: ROLAN : 1990 Requested By: RUDI BACON Order Number: [id number] Reading MD: Mikey Patterson Measurements Intervals [place] Rate: 104 P: 66 CT: 154 QRS: 68 QRSD: 82 T: 29 QT: 350 QTc: 461 Interpretive Statements SINUS TACHYCARDIA LEFT ATRIAL ABNORMALITY INCOMPLETE RIGHT BUNDLE BRANCH BLOCK Electronically Signed On 07-29-2020 9:23:30 SHIFT MGR by Mikey Patterson
[2020-07-28 21:05] LABS: CALCIUM 9.6 mg/dL (8.5-10.1); CREATININE 0.8 mg/dL (0.6-1.0); GFR 84.8; POTASSIUM 3.3 mmol/L (3.5-5.1)
[2020-07-28 21:15] LABS: ALBUMIN 4.2 g/dL (3.4-5.0); C REACTIVE PROTEIN 2.3 mg/L (0-3.3); DIRECT BILIRUBIN 0.2 mg/dL (0.0-0.2); MAGNESIUM 2.1 mg/dL (1.8-2.4); TOTAL BILIRUBIN 0.7 mg/dL (0.2-1.0); TOTAL PROTEIN 7.3 g/dL (6.4-8.2)
[2020-07-28 21:49] LABS: CLARITY,URINE HAZY; COLOR,URINE AMBER
[2020-07-28 21:50] LABS: BACTERIA,URINE 0 /HPF (0-FEW); BILIRUBIN,URINE NEG (NEG); GLUCOSE,URINE NEG (NEG); NITRITE,URINE NEG (NEG); RBC,URINE RARE /HPF (0-2); SQUAMOUS EPITHELIAL CELL,UR MOD /LPF; UROBILINOGEN,URINE 0.2 mg/dL (0.2 mg/dL); WBC,URINE 0 /HPF (0-4)
[2020-07-28 21:51] LABS: INFLUENZA A PATIENT NEGATIVE (NEGATIVE); INFLUENZA B PATIENT NEGATIVE (NEGATIVE)
[2020-07-29] MEDS ORDERED: ACETAMINOPHEN 325 MG TABLET PO PRN (00:30)
[2020-07-29] MEDS ORDERED: ONDANSETRON PF 4 MG/2 ML VIAL. IVP PRN (00:30)
[2020-07-29 01:20] VITALS: BP 135/94
--- NOTE | 2020-07-29 01:20 | NUR ---
Pt admitted to ICU bed 1 from ER via [facility], accompanied by EMS and nursing staff. Pt transferred from [facility] to bed independently, steady gait noted. Admission assessment completed. VSS, pt on room air. Pt placed on Telemetry, S.Tach noted on monitor. Pt here for asthma exacerbation & SOA. Pt has been seen in our ER twice since yesterday, was sent home on PO Zithromax, Prednisone & nebs. Pt stated that she did fill scripts and was taking medications as prescribed without improvement. Health history and home medications reviewed with pt. Pt lives at home with girlfriend, and roommates. SCDs for VTE. Pt refused flu vaccine. Pt is a smoker, RT consulted for smoking cessation. Pt was given written information regarding hospital policies, unit procedures and contact persons. Valuables were checked and left at bedside with pt. Box lunch given per request. RT was called for peak flows pre & post treatments and education on IS.
[2020-07-29] MEDS: IPRATRPIUM/ALBUTEROL 0.5/2.5MG 3 ML NEBU. NEB SCH ×3 (01:55→09:18)
[2020-07-29] MEDS ORDERED: NICOTINE 21MG PATCH. TD ONE (02:00)
[2020-07-29] MEDS ORDERED: ALBUTEROL SULFATE 2.5 MG/3 ML NEBU. NEB PRN (02:30)
[2020-07-29] MEDS ORDERED: BUDE10.2 IH (02:31)
[2020-07-29] MEDS ORDERED: IPRATRPIUM/ALBUTEROL 0.5/2.5MG 3 ML NEBU. ONE (05:30)
[2020-07-29 05:40] VITALS: BP 108/96
[2020-07-29] MEDS ORDERED: AZITHROMYCIN 250 MG TABLET. PO SCH (09:00)
[2020-07-29] MEDS ORDERED: IV RINGERS SOLUTION,LACTATED 1,000 ML IV SCH (09:00)
[2020-07-29] MEDS ORDERED: methylPREDNISolone SOD SUCC PF 125 MG/2 ML VIAL. IV SCH (09:00)
[2020-07-29] MEDS: IV RINGERS SOLUTION,LACTATED 1,000 ML IV SCH ×2 (09:00→15:15)
[2020-07-29] MEDS ORDERED: FLUTICASONE 50MCG/NASAL SPRAY 16GM BOTTLE. NS SCH (09:00)
[2020-07-29] MEDS ORDERED: LACTOBACILLUS RHAMNOSUS GG 1 CAPSULE. PO SCH (09:00)
[2020-07-29 12:14] VITALS: BP 126/70
[2020-07-29 15:29] VITALS: BP 124/83
--- NOTE | 2020-07-29 16:49 | NUR ---
Patient discharged from ICU. D/c instructions and medications reviewed with patient. All questions answered. Informed patient about smoking cessation importance and asthma exacerbation prevention. Pt verbalized understanding. All belongings left with pt at d/c. ambulated without difficulty to mother's vehicle at front of main hospital. Jori SAUNDERS
--- NOTE | 2020-07-29 17:21 | SSS ---
ADMIT DATE: 07/29/2020 HISTORY OF PRESENT ILLNESS: The patient is a 29-year-old female patient who came to the Emergency Room complaining that she is still complaining of shortness of breath and asthma exacerbation. She was seen yesterday morning and evaluated and treated for asthma exacerbation. In the morning, she has periodic asthma exacerbation with season changes every year, particularly fall. She, however, does continue to smoke tobacco and marijuana. The patient does not know her best peak flow, has been taking lirb-nzx-zxoqcoy allergy medication and she was overusing her inhaler and breathing treatment with little improvement. 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 The patient has never been intubated for bronchial asthma, has never required admission overnight to any hospital before. She does not do flu shots or Pneumovax. She had no recent travel outside [facility]. No recent fevers. Had had some productive cough with clear sputum. No history of coagulopathy or pulmonary embolism, DVT. The patient has not had any pulmonary function tests, never followed with any venture capital analyst. The patient was basically evaluated in the Emergency Room, was found to be tachypneic, tachycardic with some intercostal contractions as compared to her exam the night before in the Emergency Room and therefore, the patient was admitted with asthma exacerbation. She was started on Flonase, methyl prednisolone, azithromycin, DuoNeb and was admitted for observation. PAST MEDICAL HISTORY: Significant for bronchial asthma, anxiety and allergic rhinitis. PAST SURGICAL HISTORY: Significant for tonsillectomy. ALLERGIES: She is allergic to PENICILLIN and SHELLFISH DERIVED DERIVATIVE. MEDICATIONS: She is currently on following medications: She is on azithromycin 250 mg once a day, DuoNeb in 3 mL by nebulizer 4 times a day, albuterol sulfate 1 puff every 4 hours as needed. She is on Symbicort 160/4.5 two puffs twice a day and prednisone 50 mg daily. FAMILY HISTORY: Noncontributory. SOCIAL HISTORY: She is single, works at [employer]. She continued to smoke a pack a day and also abuse marijuana. PHYSICAL EXAMINATION: GENERAL: On arrival to the Emergency Room, she apparently was slightly tachypneic, but there was no pallor, jaundice, cyanosis or thyromegaly. No jugular venous distention. No limb edema. VITAL SIGNS: Her heart rate was 98, blood pressure was 124/85, temperature 97.9, respiratory rate 22, and oxygen saturation was 95% on room air. HEAD, EYES, EARS, NOSE AND THROAT: Showed normocephalic, atraumatic. NECK: Supple. HEART: Showed normal first and second heart sounds. No gallop or murmur. CHEST: Shows central trachea, equal bilateral chest expansion, air entry, vesicular sounds. I could not really appreciate any crepitation or rhonchi. ABDOMEN: Distended, soft, nontender. NEUROLOGIC: She is grossly intact. LABORATORY DATA: Showed that her white cell count was 13,900, hemoglobin 13.6, hematocrit 41, MCV 94 and platelet count 228,000. Her prothrombin time, INR, aPTT and D-dimer were all normal. Her chemistry showed a serum sodium 143, potassium 3.3, chloride 106, bicarbonate 23, anion gap of 14, BUN 7, creatinine 0.8, estimated GFR was 85 mL per minute. Her glucose was 89, calcium was 9.6, magnesium was 2.1. Total bilirubin, AST, ALT, alkaline phosphatase were normal. Her C-reactive protein was 2.3. Beta natriuretic peptide was 267. Total protein 7.3, albumin was 4.2. She has 3 sets of cardiac enzymes, all negative. Urinalysis, essentially unremarkable. Urine drug screen was negative and her influenza A and B as well as rapid group A Streptococcus antigens were negative. CT scan of the chest showed the patient has minimal atelectatic changes in the lingula and right middle lobe. No pulmonary infiltrates, nodules or other focal abnormalities. No pleural effusion or pneumothorax. The visualized portion of the upper abdomen is unremarkable. The patient was treated with steroids and inhalers and she did very well when I saw her this afternoon. She looked well and was clearly in no apparent respiratory distress. She was sitting at the edge of the bed comfortably in no apparent distress. No pallor, jaundice, cyanosis or thyromegaly. No jugular venous distention or limb edema. Her heart rate was 101, blood pressure was 124/83, temperature was 97.1, respiratory rate was 17 and oxygen saturation was 96% on room air. Examination of the head, ears, nose and throat, normocephalic, atraumatic. Neck was supple. The rest of clinical exam is stable. ASSESSMENT AND PLAN: The patient will be discharged back home to continue albuterol sulfate 1 puff every 4 hours, azithromycin 250 mg once a day for 2 more days, Symbicort 2 puffs twice a day and DuoNeb 3 mL by nebulizer 4 times a day and tapering course of steroids as well as Singulair 10 mg at bedtime. FINAL DISCHARGE DIAGNOSES: Asthma exacerbation, improved. ANTONIO REINA MD DR: BRIDGETT/mehul JOB#: [id number] / [id number]
== END 2020-07-29 16:49 | disposition home or self-care (01) ==
LOC: ER 19:03 → ICU 07-29 00:58
PROVIDERS: ADMIT Hospitalist; ATTEND Hospitalist
DX: J45.901 Unspecified asthma with (acute) exacerbation (principal); R09.02 Hypoxemia; F41.9 Anxiety disorder, unspecified; F17.210 Nicotine dependence, cigarettes, uncomplicated; Z90.49 Acquired absence of other specified parts of digestive tract; Z79.899 Other long term (current) drug therapy
CPT/HCPCS: 36415; 71250; 80048; 80076; 80307; 81001; 83690; 83735; 83880; 84443; 84484; 85025; 85379; 85610; 85730; 86140; 87040; 87070; 87804; 87880; 93005; 94060; 94640; 96361; 96374; 96376; 99285; 99406; G0238; G0378; J0456; J2930; J7120; G0379; 99284-25